=== PATIENT | male | born 1995 | race African-American/Black ===

== ENCOUNTER 2024-08-26 11:36 | Emergency (ER) | payer MEDICAID, SELFPAY ==
[2024-08-26 11:51] VITALS: BP 172/111; PULSE 106; RESP 20; TEMP 36.7; O2SAT 98; BMI 36.7
--- NOTE | 2024-08-26 12:07 | PD.EDDEPRS ---
ED Psych RME/HPI General Chief Complaint: Depression Stated Complaint: DEPRESSION /ANXIETY Time Seen by Provider: 08/26/24 11:39 Arrival date/time: 08/26/24 11:36 29-year-old male presents to the emergency department today stating that he has bipolar disorder and has been out of his Seroquel for her milligrams for the last couple of weeks patient requesting refill of his medication patient reports he recently moved here from [place] Limitations: no limitations Related Data Previous Rx's ?Medication ?Instructions ?Recorded quetiapine 200 mg tablet 400 mg (2 x 200 mg) PO QDAY 30 08/26/24 days #60 tabs Allergies Allergy/AdvReac Type Severity Reaction Status Date / Time No Known Allergies Allergy Verified 08/26/24 11:37 Review of Systems Review of Systems Systems Reviewed: All systems reviewed, normal except as documented Constitutional Constitutional: Reports system reviewed and no additional complaints, except as documented, Denies fever(s) and Denies headache(s) Eyes Eyes: Reports system reviewed and no additional complaints, except as documented and Denies blurry vision ENT Ears, Nose, Mouth, and Throat: Reports system reviewed and no additional complaints, except as documented, Denies headache(s), Denies nasal congestion and Denies nasal discharge Cardiovascular Cardiovascular: Reports system reviewed and no additional complaints, except as documented, Denies chest pain and Denies dyspnea Respiratory Respiratory: Reports system reviewed and no additional complaints, except as documented, Denies chest congestion, Denies cough and Denies dyspnea Gastrointestinal Gastrointestinal: Reports system reviewed and no additional complaints, except as documented and Denies abdominal pain Musculoskeletal Musculoskeletal: Reports system reviewed and no additional complaints, except as documented Integumentary/Breasts Skin/Breast: Reports system reviewed and no additional complaints, except as documented and Denies rash Neurologic Neurologic: Reports system reviewed and no additional complaints, except as documented, Reports as per HPI, Denies behavioral changes, Denies headache(s) and Denies memory loss Psychiatric Psychiatric: Reports system reviewed and no additional complaints, except as documented, Denies anhedonia, Reports anxiety, Denies behavioral changes, Reports depression, Denies difficulty concentrating, Denies hallucinations, Denies homicidal ideation, Denies memory loss, Denies panic attacks, Denies suicidal ideation, Denies tactile hallucinations and Denies visual hallucinations Past Medical History Social History SMOKING STATUS: Current every day smoker ED Exam General Limitations: Present no limitations General appearance: Present alert and in no apparent distress Head Head exam: Present atraumatic Eye Eye exam: Present normal appearance, PERRL and EOMI ENT ENT exam: Present normal exam, normal oropharynx and mucous membranes moist Neck Neck exam: Present normal inspection, full ROM and trachea midline Chest Chest inspection: Present normal inspection and symmetric chest wall rise Respiratory Respiratory exam: Present normal lung sounds bilaterally Cardiovascular Cardiovascular exam: Present regular rate, normal rhythm and normal heart sounds Abdominal Exam Abdominal exam: Present soft and normal bowel sounds Extremities Exam Extremities exam: Present normal inspection and full ROM Back Exam Back exam: Present normal inspection and full ROM Neurological Exam Neurological exam: Present alert, oriented X3 and CN II-XII intact Psychiatric Psychiatric exam: Present normal affect and normal mood Skin Skin exam: Present warm, dry, intact and normal color Course Quality Measures none Vital Signs Vital signs: Vital Signs Temperature 98.1 F 08/26/24 11:51 Pulse Rate 106 H 08/26/24 11:51 Respiratory Rate 20 08/26/24 11:51 Blood Pressure 172/111 H 08/26/24 11:51 Pulse Oximetry (%) 98 08/26/24 11:51 Oxygen Delivery Method Room Air 08/26/24 11:51 O2 saturation 98% room air within normal limits Psych MDM Narrative MDM Narrative:: 29-year-old male presents to the emergency department today stating that he has bipolar disorder and has been out of his Seroquel for her milligrams for the last couple of weeks patient requesting refill of his medication patient reports he recently moved here from [place] On exam patient well-appearing patient does not appear ill or toxic in no acute distress Patient given prescription for Seroquel Patient is here with fianc? patient reports no suicidal or homicidal ideations he assures me at this patient answers all questions appropriately Patient discharged home in no distress to follow-up with primary care doctor in the next 24 to 48 hours and for any worsening symptoms to return to the ER immediately Patient data External records reviewed:: [facility] previous records Clinical information provided by:: patient Social determinants that could affect healthcare access:: mental health Patient has the following chronic illnesses:: Bipolar disorder How is presenting disease/condition affected by chronic disease/condition?: caused by Evaluation data The following diagnostics were reviewed and interpreted by me:: other (specify) (N/A) Lab and/or radiology exams considered but not ordered:: N/A Interpretation Summary: N/A Medications / Prescriptions Medications or Prescriptions considered but not ordered:: Given Medication administrations:: Rx given Consultations Consultation(s) initiated? (list below): No Diagnosis Psych Differential Diagnosis: acute psychosis, chronic schizophrenia, suicidal ideation, bipolar disorder and other (bipolar disorder) Most likely diagnosis given after review of the tests above:: Back pain Admission Indicated Admission indicated?: not indicated Admission Request Was there a request for admission?: No Disposition Plan Disposition Plan: Discharge Discharge Attestation Discharge Attestation: The patient and all family members were given an opportunity to ask questions and understood the discharge instructions. Discharge instructions specifically effects, indications for sooner follow up or return to the emergency department, and the expected course of current diagnosis. Patient condition: Stable Discharge Plan Plan Patient Disposition: HOME (Self Care) Disposition Comment: Stable Prescriptions/Referrals Prescriptions/Med Rec: New quetiapine 200 mg tablet 400 mg PO QDAY 30 Days Qty: 60 0RF Problem List Clinical Impression: Bipolar disorder, Anxiety Patient/Caregiver Discharge Instructions Education Materials: ED Bipolar Disorder Additional Instructions: Please follow up with your primary care doctor in the next 24-48hrs for any worsening symptoms return here immediately Print Language: Austrian Stand Alone Forms: Kourtney Award Info., Patient Portal Info Letter COREY/MILKA Supervising Physician COREY/MILKA Supervising Physician: Dr. Yanez
== END 2024-08-26 12:08 | disposition home or self-care (01) ==
LOC: SERX 12:21
PROVIDERS: Emergency Provider Emergency Medicine
DX: F31.9 Bipolar disorder, unspecified (principal); F41.9 Anxiety disorder, unspecified; Z76.0 Encounter for issue of repeat prescription
CPT/HCPCS: 99281

== ENCOUNTER 2024-11-27 22:22 | Emergency (ER) | payer SELFPAY ==
[2024-11-27 22:24] VITALS: BP 154/93; PULSE 59; RESP 18; TEMP 36.4; O2SAT 99; BMI 33.2
[2024-11-27 22:44] VITALS: PULSE 108; RESP 22; O2SAT 99
--- NOTE | 2024-11-27 22:44 | EDRME_ITS ---
Rapid Medical Screening Exam [facility] Arrival date/time: 11/27/24 22:22 This is a 29-year-old male that is brought in by ambulance with complaints of left shoulder pain, left chest pain, right wrist pain and status post hitting his head and the police car a couple times. Patient denies any loss of consciousness. Patient complains of a headache. Patient admits to smoking meth today around 6 PM. Patient was in custody upon ambulance arrival but then was brought to the emergency room with no police at bedside. I have greeted and performed a focused initial assessment of this patient. Initial appropriate labs ordered at this time. A comprehensive ED assessment and evaluation of the patient and analysis of all test and completion of medical decision making process will be conducted by additional ED provider. Chief Complaint: Head Injury Time Seen by Provider: 11/27/24 22:28 Vital signs: Vital Signs Temperature 97.5 F 11/27/24 22:24 Pulse Rate 59 L 11/27/24 22:24 Respiratory Rate 18 11/27/24 22:24 Blood Pressure 154/93 H 11/27/24 22:24 Pulse Oximetry (%) 99 11/27/24 22:24 Oxygen Delivery Method Room Air 11/27/24 22:24
--- NOTE | 2024-11-27 22:47 | XR_ITS ---
Examination: PA lateral chest 2 views Technique: Upright PA lateral chest 2 views Exam date and time: November 27, 2024 10:50 PM Indications: Chest pain today. Findings: Normal heart size Lungs are clear. The osseous structures are intact Impression: No active disease
--- NOTE | 2024-11-27 22:47 | XR_ITS ---
Examination: CT brain head without contrast. 2-D sagittal coronal reconstructions Date and time of exam:November 28, 2024 0001 hrs. Indications: Injury to the head today, head pain CTDI: vol (mGy):55.3 DLP: (mGycm):1058 Technique: Multiple CT axial sections of the brain have been obtained, 5 mm slice thickness. Contrast has not been administered. 2-D sagittal, coronal reconstructions have been obtained Low dose protocols were performed. One or more of the following dose reduction techniques were used; automated exposure control, adjustment of the mA and/or KV according to patient size, use of iterative reconstruction technique. Findings: No significant ventricular enlargement. Intra-axial or extra-axial hemorrhage density is not seen. No mass effect or midline shift Basal cisterns are not remarkable. Fourth ventricle is midline. Cranial vault intact. Impression: Negative for acute hemorrhage, mass effect or midline shift
--- NOTE | 2024-11-27 22:48 | XR_ITS ---
Examination: Wrist, right 2 views Technique: Wrist AP, lateral 2 views Date and time of exam: December 07, 2024 10:50 PM Indications: Wrist pain today. Findings: No acute fracture No dislocation No foreign body Impression: No acute fracture
--- NOTE | 2024-11-27 23:35 | PC.NURSE ---
RAUL REFERENCE NUMBER [id number].
--- NOTE | 2024-11-28 01:27 | PRELIM_ITS ---
CT scan of the head without intravenous contrast (axial sections with sagittal and coronal reformats) November 28, 2024 0010 hours Clinical History: Head injury. No prior study is available for comparison. Findings: No evidence of intracranial hemorrhage, mass effect or midline shift. The ventricles and CSF spaces are unremarkable. The calvarium is intact. The mastoid air cells and the visualized paranasal sinuses are clear. Impression: No evidence of intracranial hemorrhage, midline shift or calvarial fracture. Report Electronically Signed By: Chema Escobar 11/28/2024 1:27:26 AM [EST]
[2024-11-28 05:37] VITALS: BP 161/63; PULSE 91; RESP 17; TEMP 36.8; O2SAT 97
[2024-11-28 07:30] LABS: Alcohol, Urine Negative (Negative); Amphetamine/Methamp Scrn,U Positive (Negative); Barbiturate Screen,Urine Negative (Negative); Benzodiazepines Screen,Urine Negative (Negative); Benzoylecgonine Screen, Ur Negative (Negative); Fentanyl Screen,Urine Negative (Negative); Opiate Screen,Urine Negative (Negative); THC Screen,Urine Positive (Negative)
[2024-11-28 08:20] LABS: Collection Type, Urine Clean Catch
[2024-11-28 08:24] LABS: Bilirubin,Urine Negative (Negative); Blood,Urine Negative (Negative); Clarity,Urine Clear (Clear/Hazy); Color,Urine Yellow (Lt Yel-Yel); Glucose, Urine Negative (Negative); Ketones,Urine Negative (Negative); Leukocyte Esterase,Urine Negative (Negative); Nitrite,Urine Negative (Negative); Protein,Urine 1+ (Neg - Trace); RBC,Urine 3 /hpf (0-3); Specific Gravity,Urine 1.046 (1.001-1.035); Squamous Epithelial Cell,Urine < 1 /hpf (0-5); WBC,Urine 2 /hpf (0-5)
[2024-11-28 08:44] VITALS: BP 144/91; PULSE 95; RESP 19; TEMP 36.7; O2SAT 95
[2024-11-28 09:24] LABS: Basophils % (Auto) 1 % (0-2.5); Eosinophils # (Auto) 0.1 Thou/mm3 (0.0-0.5); Eosinophils % (Auto) 1 % (0-10); Hematocrit 46.7 % (41.0-53.0); Hemoglobin 15.2 g/dL (13.5-16.0); Immature Granulocytes % (Auto) 0 % (0-0); Immature Granulocytes Auto 0.01 Thou/mm3 (0.00-0.00); Lymphocytes # (Auto) 2.2 Thou/mm3 (1.0-4.8); Lymphocytes % (Auto) 37 % (10-50); Mean Corpuscular HGB Conc 32.5 g/dl (31.0-37.0); Mean Corpuscular Hemoglobin 26.1 pg (25.0-35.0); Mean Corpuscular Volume 80 fL (80-100); Monocytes # (Auto) 0.8 Thou/mm3 (0.0-0.8); Monocytes % (Auto) 14 % (0-12); Neutrophils # (Auto) 2.8 Thou/mm3 (1.8-7.7); Neutrophils % (Auto) 47 % (37-80); Nucleated Red Blood Cell % 0 /100 WBC (0); Platelet Count 189 Thou/mm3 (140-440); Red Blood Count 5.82 Miln/mm3 (4.50-5.90)
[2024-11-28 09:50] LABS: Alanine Aminotransferase 61 U/L (10-49); Albumin, Serum 4.4 gm/dL (3.5-5.0); Albumin/Globulin Ratio 1.5 (1.2-2.2); Alkaline Phosphatase 126 U/L (46-116); Anion Gap 5 (7-16); Aspartate Amino Transferase 98 U/L (0-34); BUN/Creatinine Ratio 14 Ratio (12-20); Bilirubin,Total 0.7 mg/dL (0.3-1.2); Blood Urea Nitrogen 15 mg/dL (9-23); Calcium 9.7 mg/dL (8.3-10.6); Calcium (Corrected) 9.7 mg/dL (8.5-10.1); Carbon Dioxide 29.7 mMol/L (20.0-31.0); Chloride 106 mMol/L (98-107); Creatinine (Component) 1.1 mg/dL (0.6-1.3); Estimated Creatinine Clearance 117.7 mL/min (>60); Glucose 104 mg/dL (74-106); Osmolality,Calculated 282 (275-295); Potassium 4.4 mMol/L (3.4-5.1); Sodium 141 mMol/L (136-145); Total Protein 7.4 gm/dL (5.7-8.2); eGFR > 60 See Note
--- NOTE | 2024-11-28 11:45 | PD.EDSUICD ---
ED Psych RME/HPI General Chief Complaint: Suicidal Stated Complaint: POSSIBLE HEAD INJURY Time Seen by Provider: 11/27/24 22:28 Arrival date/time: 11/27/24 22:22 RME / HPI RME / HPI Narrative: 11/27/24 22:22 This is a 29-year-old male that is brought in by ambulance with complaints of left shoulder pain, left chest pain, right wrist pain and status post hitting his head and the police car a couple times. Patient denies any loss of consciousness. Patient complains of a headache. Patient admits to smoking meth today around 6 PM. Patient was in custody upon ambulance arrival but then was brought to the emergency room with no police at bedside. I have greeted and performed a focused initial assessment of this patient. Initial appropriate labs ordered at this time. A comprehensive ED assessment and evaluation of the patient and analysis of all test and completion of medical decision making process will be conducted by additional ED provider. Related Data Allergies Allergy/AdvReac Type Severity Reaction Status Date / Time No Known Allergies Allergy Verified 09/02/24 08:42 Review of Systems Review of Systems Narrative Review of Systems: Review of Systems: Constitutional: DENIES: Fevers,; Eyes: DENIES: Loss of vision, Head/Ear/Nose: DENIES: Loss of hearing. Throat: Denies dysphagia. Cardiovascular: Denies chest pain, Dyspnea or syncope. Respiratory: DENIES: Shortness of breath, Gastrointestinal: DENIES: Rectal bleeding or melena. Genitourinary: DENIES: Dysuria (painful or difficult urination),; Musculoskeletal: DENIES: Arthralgia (pain in a joint),; Skin: DENIES: Rash,; Neurological: DENIES: loss of function or movement,; Psychiatric: See HPI Endocrinology: DENIES: Weight change,; Hematologic/Lymphatic: DENIES: Abnormal bruising. Allergic/Immunologic: DENIES: Urticaria (hives), ED Exam Narrative Physical exam: Physical Exam: General: The vital signs were reviewed. Patient is laying on the bench seat in the conference room with a sheet over his head trying to sleep he wakes up immediately follows commands he has no obvious hallucinations. There is no obvious suicidal thoughts communicated. The patient is non-toxic, in no apparent distress and appears healthy with a patent airway, no respiratory distress and has no apparent circulatory problems. Head & Scalp: Normocephalic, atraumatic. Face: Appears normal and is without lesions, deformity. Ears: Left external pinna appears normal. Right external pinna appears normal. Eyes: The sclera is anicteric. No obvious photophobia. The Left and Right Orbit/Lid/Conjunctiva appears normal without swelling, discoloration or injection. Nose: The nose is without deformity, discharge or tenderness; Throat: Appears normal. The mucous membranes are pink and moist without exudates, redness or mass seen. The tongue appears normal. Neck: The neck is supple and no apparent mass or adenopathy. Chest: The chest wall is normal in size and symmetry and has no chest wall tenderness or crepitus. The patient displays normal ventilator effort without retractions, accessory muscle use and has adequate air movement bilaterally with no wheezes and no rales. Cardiovascular: Regular rate and rhythm; No murmurs, rubs, or gallops; Gastrointestinal: The abdomen appears normal. No obvious hernias or mass. The abdomen is soft and benign, non-distended, with no pain, no guarding and no rebound tenderness. Bowel sounds are present and normal sounding. No CVA tenderness. Genitourinary: Back/Spine: Normal Spektor and Extremities/Musculoskeletal/lymphatic: The bilateral upper and lower extremities are warm. There is no evidence of arterial insufficiency. There is no evidence of venous insufficiency/edema. The patient spontaneously moves bilateral upper and lower extremities with no pain and no limitation of movement. There is no apparent, injury or trauma. Skin: The skin is warm, dry and intact. No rashes. No petechia. No purpura. No abnormal bruising. The color is appropriate with no cyanosis. Mental status/Psychiatric: Mental status seems to be appropriate for age. States he is cutting on himself and points to his arm but there is no cut griffin visible. The patient has no apparent delusions, visual hallucinations, no apparent audible hallucinations. The patient has no apparent suicidal thoughts/ideation and no apparent homicidal thoughts/ideation. Neurological: The patient is awake, alert, interactive, cordial, cooperative and is oriented to name and situation. The patient follows commands and answers historical question with no impairment. There is no visual disturbance apparent. The pupils are equal and reactive bilaterally with normal eye movements and no diplopia The bilateral upper and lower extremities have normal strength, normal range of motion and normal functioning. The gait, station and balance appear to be baseline with no acute change Course Quality Measures none Orders Category Date Time Status EKG (ED ONLY) *Do not use* NOW Care 11/27/24 22:48 Completed Diet Regular Diet 11/28/[address] head/brain wo con Stat Exams 11/27/24 22:47 Completed EKG (ED Only) Stat Exams 11/27/24 22:47 Ordered XR chest 2V Stat Exams 11/27/24 22:47 Completed XR wrist RT 2V Stat Exams 11/27/24 22:48 Completed Alcohol, Urine Stat Lab 11/28/24 05:21 Completed CBC Stat Lab 11/28/24 08:45 Completed Comprehensive Metabolic Panel Stat Lab 11/28/24 08:45 Completed Drug Screen,Urine Stat Lab 11/28/24 05:21 Completed Urinalysis Stat Lab 11/28/24 05:21 Completed Vital Signs Vital signs: Vital Signs Temperature 97.5 F 11/27/24 22:24 Pulse Rate 59 L 11/27/24 22:24 Respiratory Rate 18 11/27/24 22:24 Blood Pressure 154/93 H 11/27/24 22:24 Pulse Oximetry (%) 99 11/27/24 22:24 Oxygen Delivery Method Room Air 11/27/24 22:24 Psych MDM Narrative MDM Narrative:: Evidently patient initially presented with complaints of head pain after bouncing his head against the wall or something and then chest and x-rays of the wrist were done and those also came back negative. Patient was about to be discharged evidently and then started talk about suicidal thoughts and therefore he was put into room for further evaluation. Patient was medically cleared he is using methamphetamine and admits to using it 2 days ago. Is also using marijuana and his drug screen. Medical workup reveals a x-ray of the wrist which reveals no fracture. CT of the head was unremarkable. X-ray of the chest reveals no infiltrates effusion and normal heart silhouette. CBC was done which was unremarkable and a comprehensive metabolic panel was essentially negative with some mild transaminase elevations. Social service evaluate this patient this morning at about 1145 they are communicating to the patient is cleared to be discharged. He was advised to follow-up with mental health and not use drugs. Patient data External records reviewed:: [facility] previous records Clinical information provided by:: patient Social determinants that could affect healthcare access:: mental health Patient has the following chronic illnesses:: Schizophrenia How is presenting disease/condition affected by chronic disease/condition?: exacerbated by Evaluation data The following diagnostics were reviewed and interpreted by me:: other (specify) (Lab results are discussed in the MDM above.) Lab and/or radiology exams considered but not ordered:: None Interpretation Summary: See MDM Medications / Prescriptions Medications or Prescriptions considered but not ordered:: None Medication administrations:: None Consultations Consultation(s) initiated? 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 Discharge instructions specifically effects, indications for sooner follow up or return to the emergency department, and the expected course of current diagnosis. Patient condition: Stable Discharge Plan Plan Patient Disposition: HOME (Self Care) Prescriptions/Referrals Referrals: No Primary/Family,Physician [Primary Care Provider] - In 1 week Problem List Clinical Impression: Suicidal ideation Patient/Caregiver Discharge Instructions Education Materials: Depression and Suicide Additional Instructions: Please stop using methamphetamine. Follow-up with mental health as directed. Return if you are getting worse. Print Language: Maori
--- NOTE | 2024-11-28 11:50 | PC.NURSE ---
cleared by foster care social worker for discharge
--- NOTE | 2024-11-28 12:24 | PC.SS ---
Addendum entered by Yasmine Schafer 11/28/24 12:44: Patient requested [employer] transport support. Transportation arranged for 12:30 via [employer]. Original Note: Patient BIB ambulance due to chest pain and disclosed experiencing suicidal ideation to tending RN. Activities Coordinator met with patient at conference room. Patient was attempting to put shoes on and leave. Patient was cooperative and was redirected to continue evaluation. Patient was AOx3, scored Low Risk in CSSRS. Patient confirmed demographic information and shared he is transient. Patient denied having current SI, plan, method, or intent. Patient explained he reported wanting to hang self to RN due to wanting a place to sleep. Patient stated, I know what to say to get a bed to sleep and eat. Patient denied having self-harmed. Patient reported having relapsed due to stress and arguing with his girlfriend. Patient reported having Ah and Vh after ingesting methamphetamine. Patient denied having access to firearms. Patient declined [facility] support, he explained he is already linked to [facility] and in the process of seeking his own mental health services. Patient reported being diagnosed with depression and anxiety. He stated he is currently not taking psychotropic medications at this time. Patient identified his girlfriend Alma Delia Mejia as part of his support system. Crisis and emergency contacts reviewed with patient. Activities Coordinator consulted with vendor quality supervisor [facility] and patient was assessed as not meeting criteria for an involuntary hold. Patient scored low risk on CSSRS. Safety plan completed with patient. Community resources provided to patient. Transportation token provided to patient. Dr. Herman and ZAIRA Jimenez informed.
== END 2024-11-28 11:55 | disposition home or self-care (01) ==
PROVIDERS: Emergency Medicine; Emergency Provider Emergency Medicine
DX: R45.851 Suicidal ideations (principal); R51.9 Headache, unspecified; M25.531 Pain in right wrist; R07.9 Chest pain, unspecified
CPT/HCPCS: 36415; 70450; 71046; 73100; 80053; 80307; 80320; 81001; 85025; 90839; 93005; 96127; 99284; G0480

== ENCOUNTER 2025-01-12 05:25 | Emergency (ER) | payer MEDICAID, SELFPAY ==
[2025-01-12] VITALS (7 sets, daily range): BP systolic 129–167; BP diastolic 65–104; PULSE 60–96; RESP 16–20; TEMP 36.5–36.8; O2SAT 96–98; BMI 34.7
--- NOTE | 2025-01-12 06:17 | PD.EDRME ---
Rapid Medical Screening Exam RME Arrival date/time: 01/12/25 05:25 29-year-old male with a history of depression and high blood pressure presents to the emergency room with a chief complaint of suicidal ideation. Patient states he has been depressed for the last 2 months and this plan is to slice his wrist. I have greeted and performed a focused initial assessment of this patient. A comprehensive ED assessment and evaluation of the patient, analysis of all test results, and completion of the medical decision making process will be conducted by additional ED providers. Chief Complaint: Suicidal Time Seen by Provider: 01/12/25 06:12 Vital signs: Vital Signs Temperature 98.1 F 01/12/25 05:37 Pulse Rate 90 01/12/25 05:37 Respiratory Rate 17 01/12/25 05:37 Blood Pressure 167/104 H 01/12/25 05:37 Pulse Oximetry (%) 98 01/12/25 05:37 Oxygen Delivery Method Room Air 01/12/25 05:37 Vital signs reviewed by provider: Yes
[2025-01-12 07:04] LABS: Amphetamine/Methamp Scrn,U Negative (Negative); Barbiturate Screen,Urine Negative (Negative); Benzodiazepines Screen,Urine Negative (Negative); Benzoylecgonine Screen, Ur Negative (Negative); Fentanyl Screen,Urine Negative (Negative); Opiate Screen,Urine Negative (Negative); THC Screen,Urine Positive (Negative)
--- NOTE | 2025-01-12 07:08 | PD.EDSUICD ---
ED Psych RME/HPI General Chief Complaint: Suicidal Stated Complaint: DEPRESSION AND SI Time Seen by Provider: 01/12/25 06:12 Arrival date/time: 01/12/25 05:25 RME / HPI RME / HPI Narrative: 01/12/25 05:25 29-year-old male with a history of depression and high blood pressure presents to the emergency room with a chief complaint of suicidal ideation. Patient states he has been depressed for the last 2 months and this plan is to slice his wrist. I have greeted and performed a focused initial assessment of this patient. A comprehensive ED assessment and evaluation of the patient, analysis of all test results, and completion of the medical decision making process will be conducted by additional ED providers. DR. GARRETT MAIN ED EVALUATION: 29 year old male who is currently homeless with history of schizoaffective disorder and previous mental health hospitalization presents to the ED requesting mental health evaluation. Patient reports feeling suicidal, delusional, and not worthy of living. States he plans to cut himself. Additionally reports outbursts where he is punching himself on the head or punching mascorro/floors, and feels that people are out to hurt him. Patient mentioned in the past he has taken Seroquel however due to its side effects he stopped he medication. States he has attempted to be evaluated by PCP at [facility] for different medications but was told he would need to wait 45 days. Related Data Allergies Allergy/AdvReac Type Severity Reaction Status Date / Time No Known Allergies Allergy Verified 01/12/25 05:25 Review of Systems Review of Systems Narrative Review of Systems: Constitutional: DENIES; Fevers Eyes: DENIES; Loss of vision Head/Ear/Nose: DENIES; Loss of hearing Throat: DENIES; Dysphagia Cardiovascular: DENIES; Chest pain, dyspnea or syncope Respiratory: DENIES; Shortness of breath Gastrointestinal: DENIES; Rectal bleeding or melena. Genitourinary: DENIES; Dysuria (painful or difficult urination) Musculoskeletal: DENIES; Arthralgia (pain in a joint),; Skin: DENIES; Rash Neurological: DENIES; Loss of function or movement Psychiatric: SEE HPI Endocrinology: DENIES; Weight change Hematologic/Lymphatic: DENIES; Abnormal bruising Allergic/Immunologic: DENIES; Urticaria (hives) Past Medical History Past Medical History CARDIAC: Positive Hypertension; Negative Congestive Heart Failure RESPIRATORY: Negative Chronic Obstructive Pulmonary Disease (COPD) GENITOURINARY: Negative Renal Disease ENDOCRINE: Negative Diabetes Mellitus Type 1 or Diabetes Mellitus Type 2 PSYCHO/SOCIAL: Positive Depression and Anxiety Family History FAMILY HISTORY: Positive Family Cancer (PT'S GRANDMA STOMACH CANCER) Social History SMOKING STATUS: Current every day smoker ED Exam Narrative Physical exam: Physical Exam: General: The vital signs were reviewed. The patient is non-toxic, in no apparent distress and appears healthy with a patent airway, no respiratory distress and has no apparent circulatory problems. Head & Scalp: Normocephalic, atraumatic. Face: Appears normal and is without lesions, deformity. Ears: Left external pinna appears normal. Right external pinna appears normal. Eyes: The sclera is anicteric. No obvious photophobia. The Left and Right Orbit/Lid/Conjunctiva appears normal without swelling, discoloration or injection. Nose: The nose is without deformity, discharge or tenderness; Throat: Appears normal. The mucous membranes are pink and moist without exudates, redness or mass seen. The tongue appears normal. Neck: The neck is supple and no apparent mass or adenopathy. Chest: The chest wall is normal in size and symmetry and has no chest wall tenderness or crepitus. The patient displays normal ventilator effort without retractions, accessory muscle use and has adequate air movement bilaterally with no wheezes and no rales. Cardiovascular: Regular rate and rhythm; No murmurs, rubs, or gallops; Gastrointestinal: The abdomen appears normal. No obvious hernias or mass. The abdomen is soft and benign, non-distended, with no pain, no guarding and no rebound tenderness. Bowel sounds are present and normal sounding. No CVA tenderness. Genitourinary: Back/Spine: Normal inspection Extremities/Musculoskeletal/lymphatic: The bilateral upper and lower extremities are warm. There is no evidence of arterial insufficiency. There is no evidence of venous insufficiency/edema. The patient spontaneously moves bilateral upper and lower extremities with no pain and no limitation of movement. There is no apparent, injury or trauma. Skin: The skin is warm, dry and intact. No rashes. No petechia. No purpura. No abnormal bruising. The color is appropriate with no cyanosis. Mental status/Psychiatric: Mental status is somewhat labile and angry The patient has no rambling speech at times. The patient has no apparent suicidal thoughts/ideation and no apparent homicidal thoughts/ideation. Neurological: The patient is awake, alert, interactive, cordial, cooperative and is oriented to name and situation. The patient follows commands and answers historical question with no impairment. There is no visual disturbance apparent. The pupils are equal and reactive bilaterally with normal eye movements and no diplopia The bilateral upper and lower extremities have normal strength, normal range of motion and normal functioning. The gait, station and balance appear to be baseline with no acute change Course Quality Measures none Orders Category Date Time Status 1799 Psychiatric Hold NOW Care 01/12/25 08:00 Ordered Alcohol, Blood Medical Stat Lab 01/12/25 07:47 Completed CBC Stat Lab 01/12/25 07:47 Completed CMP [Comprehensive Metabolic Panel] Stat Lab 01/12/25 07:47 Completed Drug Screen,Urine Stat Lab 01/12/25 06:30 Completed DiphenhydrAMINE INJ [Benadryl Inj] Med 01/12/25 09:05 Discontinued 50 mg IM X1 ONE Haloperidol Lactate [Haldol Inj] Med 01/12/25 09:05 Discontinued 10 mg IM X1 ONE LORazepam [Ativan Inj] Med 01/12/25 09:05 Discontinued 2 mg IM X1 ONE Vital Signs Vital signs: Vital Signs Temperature 98.1 F 01/12/25 05:37 Pulse Rate 90 01/12/25 05:37 Respiratory Rate 17 01/12/25 05:37 Blood Pressure 167/104 H 01/12/25 05:37 Pulse Oximetry (%) 98 01/12/25 05:37 Oxygen Delivery Method Room Air 01/12/25 05:37 Pulse ox is 98% on room air which is adequate. Psych MDM Narrative MDM Narrative:: IJacinta, am scribing for and in the presence of Dr. Garrett. Patient is medically cleared for mental health evaluation. CBC was within normal limits. Sodium 133 potassium 3 9 chloride 102 CO2 25 BUN 13 creatinine 1.1 urine drug screen was positive for marijuana otherwise negative 0902: The patient is agitated, screaming, and pounding his fists on the bed. I called our ASW over to assess the patient and recommends medicating then reassessing. Patient was medically cleared with drug screen positive for marijuana only. CBC and CHEM panel essentially unremarkable. Because he got agitated as mentioned above he got some Haldol Ativan and Benadryl and. He has been sleeping comfortably with no further outbursts up to [address] services has seen the patient before and briefly and at this time are monitoring and observing for the longer. Patient's care will go to the oncoming doctor at 1800 hrs. 1630: Patient has been accepted by Dr. Parekh at [facility]. Patient has been calm since he got his sedation. Patient data External records reviewed:: [facility] previous records (I reviewed ED visit on 11/28/2024 ) Clinical information provided by:: patient Social determinants that could affect healthcare access:: mental health Patient has the following chronic illnesses:: Schizoaffective disorder How is presenting disease/condition affected by chronic disease/condition?: exacerbated by Evaluation data The following diagnostics were reviewed and interpreted by me:: lab results Lab and/or radiology exams considered but not ordered:: None Interpretation Summary: as noted above Medications / Prescriptions Medications or Prescriptions considered but not ordered:: None Medication administrations:: Medication Administration History Discontinued Medications Diphenhydramine HCl (Diphenhydramine Inj 50 Mg/Ml Vial) 50 mg IM X1 ONE Stop: 01/12/25 09:06 Last Admin: 01/12/25 09:29 Dose: 50 mg Documented By: MAYLIN Haloperidol Lactate (Haloperidol Lact Inj 5 Mg/Ml Vial) 10 mg IM X1 ONE Stop: 01/12/25 09:06 Last Admin: 01/12/25 09:28 Dose: 10 mg Documented By: MAYLIN Lorazepam (Lorazepam 2 Mg/Ml Vial) 2 mg IM X1 ONE Stop: 01/12/25 09:06 Last Admin: 01/12/25 09:29 Dose: 2 mg Documented By: MAYLIN See above Consultations Consultation(s) initiated? (list below): No Diagnosis Psych Differential Diagnosis: acute psychosis, chronic schizophrenia, suicidal ideation, bipolar disorder, depression, drug-induced psychotic disorder and acute anxiety Most likely diagnosis given after review of the tests above:: Hx of schizoaffective disorder Outbursts of anger Admission Indicated Admission indicated?: not indicated Explain why admission is indicated or not indicated:: Txfer to [facility] Admission Request Was there a request for admission?: No Disposition Plan Disposition Plan: Discharge Discharge Attestation Discharge Attestation: The patient and all family members were given an opportunity to ask questions and understood the discharge instructions. Discharge instructions specifically effects, indications for sooner follow up or return to the emergency department, and the expected course of current diagnosis. Patient condition: Stable Discharge Plan Prescriptions/Referrals Referrals: No Primary/Family,Physician [Primary Care Provider] - In 1 week Problem List Clinical Impression: History of schizoaffective disorder, Outbursts of anger Patient/Caregiver Discharge Instructions Print Language: Guamanian
[2025-01-12 08:03] LABS: Basophils % (Auto) 1 % (0-2.5); Eosinophils % (Auto) 1 % (0-10); Hematocrit 52.2 % (41.0-53.0); Immature Granulocytes % (Auto) 0 % (0-0); Lymphocytes # (Auto) 2.5 Thou/mm3 (1.0-4.8); Lymphocytes % (Auto) 42 % (10-50); Mean Corpuscular HGB Conc 32.6 g/dl (31.0-37.0); Mean Corpuscular Hemoglobin 26.1 pg (25.0-35.0); Mean Corpuscular Volume 80 fL (80-100); Monocytes # (Auto) 0.6 Thou/mm3 (0.0-0.8); Monocytes % (Auto) 11 % (0-12); Neutrophils # (Auto) 2.8 Thou/mm3 (1.8-7.7); Neutrophils % (Auto) 46 % (37-80); Nucleated Red Blood Cell % 0 /100 WBC (0); Platelet Count 172 Thou/mm3 (140-440); Red Blood Count 6.52 Miln/mm3 (4.50-5.90)
[2025-01-12 08:34] LABS: Alanine Aminotransferase 19 U/L (10-49); Albumin, Serum 4.9 gm/dL (3.5-5.0); Albumin/Globulin Ratio 1.4 (1.2-2.2); Alcohol, Blood Medical < 3.0 mg/dL (0-10.0); Alkaline Phosphatase 130 U/L (46-116); Anion Gap 6 (7-16); Aspartate Amino Transferase 31 U/L (0-34); BUN/Creatinine Ratio 12 Ratio (12-20); Bilirubin,Total 1.2 mg/dL (0.3-1.2); Blood Urea Nitrogen 13 mg/dL (9-23); Calcium 9.9 mg/dL (8.3-10.6); Calcium (Corrected) 9.9 mg/dL (8.5-10.1); Carbon Dioxide 25.4 mMol/L (20.0-31.0); Chloride 102 mMol/L (98-107); Creatinine (Component) 1.1 mg/dL (0.6-1.3); Estimated Creatinine Clearance 120.3 mL/min (>60); Globulin 3.4 gm/dL (2.3-3.5); Glucose 91 mg/dL (74-106); Osmolality,Calculated 266 (275-295); Potassium 3.9 mMol/L (3.4-5.1); Sodium 133 mMol/L (136-145); Total Protein 8.3 gm/dL (5.7-8.2); eGFR > 60 See Note
--- NOTE | 2025-01-12 09:07 | PC.NURSE ---
Patient jumping up and down, yelling out, agitated, demanding medication, Security and Dr. Herman called to bedside.
[2025-01-12] MEDS: HALOPERIDOL LACT INJ 5 MG/ML VIAL 10 MG IM (09:28)
[2025-01-12] MEDS: DiphenhydrAMINE INJ 50 MG/ML VIAL IM (09:29)
[2025-01-12] MEDS: LORazepam 2 MG/ML VIAL IM (09:29)
--- NOTE | 2025-01-12 10:35 | PC.CC ---
ASW made face to face contact with the patient, introduced self, role, and reason for visit. Patient appeared to be alert and oriented to self, location, and situation. Patient reports he needs help as he has a mental health diagnosis of Schizo-affective with Bipolar Type. Patient reports he moved here but did not provide where he had relocated from. Patient reports he has been off his medication for approximately 5 months and needs help. Patient was agitated and ASW excused herself from the room. ASW will continue evaluation once patient is not agitated and safe for ASW to return for assessment.
--- NOTE | 2025-01-12 14:59 | PC.CC ---
Patient is a 29 year-old male who presents to the hospital for a mental health evaluation for depression and suicidal ideation. Patient was placed on a 1799 at 0800 on 01/12/2025. Al met with patient [id number] to complete assessment. ASW introduced self, role, and reason for assessment. ASW disclosed limits of confidentiality as well. Patient appeared alert and oriented to self, place, and situation. Patient?s mood appeared to be depressed had a flat affect and disinhibited and made minimal eye contact; patient had good insight and judgement. Patient?s thought process was linear and organized. No signs of delusions, paranoid or V/h. Patient reports he came to the hospital because he is having suicidal ideations with plan and intention to run into moving traffic. ASW explored if something occurred that triggered him to have suicidal ideations. Patient stated, ?I have been off my medication for a few months and have Schizo-affective Disorder Bipolar Type. ASW inquired who provided him with this diagnosis. Patient reports a Doctor in [place] provided him with this diagnosis. At the time of encounter patient continues to express suicidal ideations with plan to run into traffic. Patient denied homicidal ideations, visual and auditory hallucinations. Per patient, he has been on a 5150-hold in the past but was not able to provide details. Patient reports he had a suicide attempt a ?few years ago.? Patient did not elaborate what the attempt was. Patient scored High-Risk on the [place] Screening. Patient?s toxicology was positive for marijuana. ASW made contact with [facility] and patient is not connected to them. Patient reports there is no one to call for collateral information. Upon clinical consultation with QUITA, Amina Fermin patient will be placed on a 5150-hold for Danger to Self. Patient is unable to provide a viable safety plan. ASW provided advisement to patient of 5150-hold. ASW provided update of discharge plan to [facility] Facility to Dr. Herman, caustic purification operator Kathy, bedside ZAIRA Arias. ??
--- NOTE | 2025-01-12 16:02 | PC.CC ---
Patient was by accepted by [facility] by Dr. Parekh, unit 3. Gill provided accepting information with [facility]. ASW provided updated d/c plan to [facility] to Dr. Herman, picture frames inspector Anjali, and bedside RN. ASW provided accepting information to patient. ASW to arrange transportation via [facility].
== END 2025-01-12 18:00 ==
PROVIDERS: Nurse Practitioner Family; Emergency Provider Emergency Medicine
DX: F25.9 Schizoaffective disorder, unspecified (principal); R45.851 Suicidal ideations; F32.A Depression, unspecified; Z59.00 Homelessness unspecified
CPT/HCPCS: 36415; 80053; 80307; 80320; 85025; 90839; 96127; 96372; 99285; J1200; J1630; J2060; G0480

== ENCOUNTER 2025-09-14 18:52 | Emergency (ER) | payer MEDICAID, SELFPAY ==
[2025-09-14 19:09] VITALS: BP 144/58; PULSE 99; RESP 18; TEMP 36.7; O2SAT 98; BMI 33.2
--- NOTE | 2025-09-14 19:23 | PD.EDPSYCH ---
ED Psych RME/HPI General Chief Complaint: Psychiatric Symptoms Stated Complaint: MENTAL EVAL Time Seen by Provider: 09/14/25 19:03 Arrival date/time: 09/14/25 18:52 RME / HPI Treatments prior to arrival: placed on mental health hold RME / HPI Narrative: DR. QUINTEROS MAIN ED EVALUATION: Patient transported by EMS reportedly SI with associated plan and noted auditory hallucinations of command type. Patient has been off medication for approximately 5 days. No visual hallucinations or reported excessive alcohol consumption. No recent illicit drug abuse. Reports Hx of schizoaffective disorder. PMH: Schizoaffective Disorder, HIV, HTN PSH: Unremarkable Allergies: None Social: Tobacco/Marijuana use, Occasional alcohol, No recent methamphetamine Related Data Allergies Allergy/AdvReac Type Severity Reaction Status Date / Time No Known Allergies Allergy Verified 01/12/25 05:25 Review of Systems Review of Systems Systems Reviewed: All systems reviewed, normal except as documented Past Medical History Past Medical History CARDIAC: Positive Hypertension PSYCHO/SOCIAL: Positive Psychiatric Problems (Schizoeffective Disorder), Recreational Drug Use, Depression and Anxiety Family History FAMILY HISTORY: Positive Family Cancer (PT'S GRANDMA STOMACH CANCER) Social History SMOKING STATUS: Current some day smoker SUBSTANCE USE: methamphetamine ALCOHOL: Current ED Exam Narrative Physical exam: GEN. APPEARANCE: The patient is alert awake oriented X-3 demonstrated volatile emotional outbreak. Patient has good eye contact. VITALS: All vitals were reviewed and the pulse ox is 98%, which is normal according to my interpretation HEENT: Normocephalic, atraumatic and nontender. Pupils are equal and reactive. Oral mucosa is moist. NECK: Supple, nontender, no meningismus, no JVD. There is no thyromegaly and no lymphadenopathy. CHEST: Nontender on palpation no deformity and no crepitus. CARDIOVASCULAR: Heart regular rhythm, no murmur or gallop rub or extra beats. LUNGS: Clear to auscultation bilaterally with symmetrical chest rise. No laboring tachypnea or wheezing. No intercostal subcostal retraction. No rales and no rhonchi. ABDOMEN: Soft, flat, nontender to palpation, no guarding or rebound tenderness. There are no abnormal masses palpated. No pulsatile masses or bruits. Active and normal bowel sounds. EXTREMITIES: Normal inspection and palpation. No edema. No cyanosis. Patient is able to move all 4 extremities well SKIN: Warm and dry, no rashes noted. MUSCULOSKELETAL: No lumbar or midline bony tenderness. There is no CVA tenderness. No paraspinal muscle spasm or tenderness. NEURO: Cranial nerves II through XII grossly intact. There are no focal neurologic deficits noted. GCS is 15 PSYCHIATRIC: Affect is flat, speech slightly tangential, positive SI with plan, negative HI, positive delusions/auditory hallucinations. Course Course Course Narrative: 0600: Care assumed by Dr. Yanez (emergency physician). Past medical, surgical, social and family history reviewed. Vitals and home medications reviewed. Results and treatment plan discussed. They will assume the care of the patient at this time and will follow the patient, pending psychiatric evaluation and final disposition. Quality Measures none Orders Category Date Time Status 1799 Psychiatric Hold NOW Care 09/14/25 22:15 Ordered One-to-one observation NOW Care 09/14/25 19:17 Completed Suicide precautions NOW Care 09/14/25 19:16 Completed Diet Regular Diet 09/15/25 Lunch Active Acetaminophen Stat Lab 09/14/25 19:38 Completed Alcohol, Blood Medical Stat Lab 09/14/25 19:38 Completed Alcohol, Urine Stat Lab 09/14/25 20:58 Completed CBC Stat Lab 09/14/25 19:38 Completed Drug Screen,Urine Stat Lab 09/14/25 20:58 Completed Salicylate Stat Lab 09/14/25 19:38 Completed Diazepam Inj [Valium Inj] Med 09/14/25 19:03 Discontinued 5 mg IM X1 ONE Haloperidol Lactate [Haldol Inj] Med 09/14/25 19:03 Discontinued 10 mg IM X1 ONE QUEtiapine FUMARATE [SEROquel] Med 09/14/25 19:23 Discontinued 300 mg PO X1 ONE Late Tray Request Routine Oth 09/15/25 07:54 Active Vital Signs Vital signs: Vital Signs Temperature 98.1 F 09/14/25 19:09 Pulse Rate 99 09/14/25 19:09 Respiratory Rate 18 09/14/25 19:09 Blood Pressure 144/58 H 09/14/25 19:09 Pulse Oximetry (%) 98 09/14/25 19:09 Oxygen Delivery Method Room Air 09/14/25 19:09 Psych MDM Narrative MDM Narrative:: Scribe Attestation: IWendi, am scribing for and in the presence of Dr. Quinteros. Provider Notation: Although this document has been carefully reviewed, there may still be some phonetic and other typographical errors. These errors are purely grammatical due to imperfections in the software program and should not be construed in any way to compromise the substance of the patient's medical care during this visit. Patient transported by EMS reportedly SI with associated plan and noted auditory hallucinations of command type. Patient has been off medication for approximately 5 days. No visual hallucinations or reported excessive alcohol consumption. No recent illicit drug abuse. Please see PE findings. Laboratory marked included CBC serum chemistries were essentially unremarkable. Toxicological profile was positive for methamphetamine and marijuana. Patient initially severely agitated and verbal de-escalation accomplished by security officers. Patient underwent psychiatric screening laboratory analysis (please see above). Considered medically cleared and awaiting psychiatric evaluation in the AM. Patient's usual dosage of Seroquel administered as a mood stabilizer and Valium given for generalized anxiety. Currently awaiting mental health service evaluation. Patient data External records reviewed:: [facility] previous records (Reviewed prior ED records from 01/12/25. Patient was seen for History of schizoaffective disorder.) Clinical information provided by:: patient Social determinants that could affect healthcare access:: mental health (alcohol, methamphetamine) Patient has the following chronic illnesses:: Schizoeffective Disorder, Recreational Drug Use, Depression and Anxiety How is presenting disease/condition affected by chronic disease/condition?: exacerbated by Evaluation data The following diagnostics were reviewed and interpreted by me:: lab results Lab and/or radiology exams considered but not ordered:: None Interpretation Summary: See MDM above Medications / Prescriptions Medications or Prescriptions considered but not ordered:: None Medication administrations:: Medication Administration History Discontinued Medications Diazepam (Diazepam Inj 5 Mg/Ml Vial 2 Ml) 5 mg IM X1 ONE Stop: 09/14/25 19:04 Last Admin: 09/14/25 21:14 Dose: 5 mg Documented By: KARINA Haloperidol Lactate (Haloperidol Lact Inj 5 Mg/Ml Vial) 10 mg IM X1 ONE Stop: 09/14/25 19:04 Last Admin: 09/14/25 21:11 Dose: Not Given Documented By: KARINA Non-Admin Reason: Cancelled by Provider Quetiapine Fumarate (Quetiapine Fumarate 100 Mg Tablet) 300 mg PO X1 ONE Stop: 09/14/25 19:24 Last Admin: 09/14/25 21:13 Dose: 300 mg Documented By: KARINA See above if any. Consultations Consultation(s) initiated? (list below): No Diagnosis Psych Differential Diagnosis: acute psychosis, chronic schizophrenia, suicidal ideation, bipolar disorder, depression, drug-induced psychotic disorder and acute anxiety Most likely diagnosis given after review of the tests above:: Acute psychosis/history of schizoaffective disorder Admission Indicated Admission indicated?: not indicated Explain why admission is indicated or not indicated:: Pending psychiatric evaluation in the morning. Admission Request Was there a request for admission?: No Disposition Plan Disposition Plan: other (specify) (Patient signed out to Dr. Yanez at 6 AM.) Discharge Plan Plan Patient Disposition: [facility] Prescriptions/Referrals Referrals: No Primary/Family,Physician [Primary Care Provider] - In 1 week Problem List Clinical Impression: Schizoaffective disorder, Acute psychosis Patient/Caregiver Discharge Instructions Print Language: Japanese Stand Alone Forms: [facility]ourtney Award Info., Patient Portal Info Letter
[2025-09-14 19:48] LABS: Basophils # (Auto) 0.1 Thou/mm3 (0.0-0.2); Basophils % (Auto) 1 % (0-2.5); Eosinophils # (Auto) 0.2 Thou/mm3 (0.0-0.5); Eosinophils % (Auto) 3 % (0-10); Hematocrit 44.4 % (41.0-53.0); Hemoglobin 14.6 g/dL (13.5-16.0); Immature Granulocytes Auto 0.02 Thou/mm3 (0.00-0.00); Lymphocytes # (Auto) 2.1 Thou/mm3 (1.0-4.8); Lymphocytes % (Auto) 30 % (10-50); Mean Corpuscular HGB Conc 32.9 g/dl (31.0-37.0); Mean Corpuscular Hemoglobin 26.4 pg (25.0-35.0); Mean Corpuscular Volume 80 fL (80-100); Monocytes # (Auto) 0.6 Thou/mm3 (0.0-0.8); Monocytes % (Auto) 9 % (0-12); Neutrophils # (Auto) 3.9 Thou/mm3 (1.8-7.7); Neutrophils % (Auto) 57 % (37-80); Nucleated Red Blood Cell # 0.00 Thou/mm3 (0.00-0.00); Nucleated Red Blood Cell % 0 /100 WBC (0); Platelet Count 212 Thou/mm3 (140-440); RDW Standard Deviation 43.1 fL (35.1-43.9); Red Blood Count 5.52 Miln/mm3 (4.50-5.90); White Blood Count 6.9 Thou/mm3 (3.8-10.6)
[2025-09-14 20:05] LABS: Acetaminophen < 2.0 mcg/mL (10.0-20.0); Alcohol, Blood Medical < 3.0 mg/dL (0-10.0); Salicylate < 3.0 mg/dL
[2025-09-14] MEDS: DIAZEPAM INJ 5 MG/ML VIAL 2 ML IM (21:14)
--- NOTE | 2025-09-14 21:27 | PC.NURSE ---
Medications administered late due to receiving patient at 0 with meds not being given in over 2 hours.
[2025-09-14 21:46] LABS: Alcohol, Urine Negative (Negative); Amphetamine/Methamp Scrn,U Positive (Negative); Barbiturate Screen,Urine Negative (Negative); Benzodiazepines Screen,Urine Negative (Negative); Benzoylecgonine Screen, Ur Negative (Negative); Fentanyl Screen,Urine Negative (Negative); Opiate Screen,Urine Negative (Negative); THC Screen,Urine Positive (Negative)
[2025-09-15] VITALS: BP 150/70; PULSE 90; RESP 16; TEMP 36.6; O2SAT 95
[2025-09-15 04:00] VITALS: BP 167/76; PULSE 81; RESP 17; TEMP 36.6; O2SAT 98
[2025-09-15 07:18] VITALS: BP 134/87; PULSE 89; RESP 19; TEMP 36.6; O2SAT 95
--- NOTE | 2025-09-15 07:54 | PD.EDADDENDU ---
Emergency Room Addendum Addendum Narrative: 0600: Care assumed from Dr. Flores, the previous shift emergency physician. Past medical, surgical, social and family history reviewed. Vitals and home medications reviewed. I will assume the care of the patient at this time, pending mental health evaluation and final disposition. Please refer to the emergency department record for history and examination from initial visit.?The following addendum documentation note is intended to reflect any pending information, findings, or radiology results not included in the patient?s initial chart. Patient has been evaluated by our social services counselor and placed on a [address] into an LPS facility. Patient has been accepted by Dr. Lock at [facility]. EMS p/u 15:00h. 1500: EMS here to transfer the patient.
--- NOTE | 2025-09-15 08:44 | PC.CC ---
QUITA Lilly and PATRICIO Luna met with patient at bedside. Patient is a 30 year old male who is currently living at the [facility] (a half-way in [place]). Patient has been unhoused for several years. Patient has not family in the area. Patient states that most of his family is in [place] but recently came back to [place] because he likes the weather. Patient came into the Emergency Room due to having thoughts of harming self. Patient was disheveled, poor eye contact and agitated. Patient reports that he has a history of schizoaffective disorder, bipolar type as well as depression and anxiety. Patient reports history of auditory hallucination command type. Patient has no visual hallucination or homicidal ideation. When asked about the voices, patient states that the voices tell him to kill himself. Patient states that he recently obtained a speaker and started hitting himself over the head to stop the voices. Patient has thoughts of hanging self if discharged. Patient was recently release from [facility]. Patient was placed there on a 5150 hold for danger to self. Patient was released with medication seroquel 500 mg and olanzapine 5 mg and appointment for which patient did not attend. Patient also reports that he has not taken his medication for the past 5 days. Patient states that the medication is at the [facility] with the rest of his belonging. Patient reports that he went to the [facility] because he wanted to get into a program that will help him get better. 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 Patient is not able to safety plan at this time. Patient meets criteria for danger to self. Team discussed it with Direct powerhouse mechanic supervisor and QUITA wrote the 5150 hold. Team informed the samantaibbarby Johns that patient was going to be placed on a hold scribe will inform the physician. PATRICIO Luna also informed charge nurse.
--- NOTE | 2025-09-15 10:18 | PC.SS ---
Addendum entered by Cheryl Shelby 09/15/25 10:47: SS set up transportation with Gill from [facility] for 1500. SS notified Charge nurse, Lu as well as patients nurse, Ruth Ann. Patient was also made aware. Original Note: SS follow up note; SS sent out clinicals to all [facility] facilities. SS was then contacted by Ranjit . Accepting Dr Lock. [address]. Aden would like patient to arrive at 4PM. SS transferred call to patient's nurse for report.
--- NOTE | 2025-09-15 10:26 | PC.NURSE ---
JOHANNA DOUGLASS CALLED IN REGARDS TO NURSE TO NURSE REPORT
[2025-09-15 11:00] VITALS: BP 122/73; PULSE 83; RESP 20; TEMP 36.7; O2SAT 98
== END 2025-09-15 15:20 ==
PROVIDERS: Emergency Medicine; Emergency Provider Emergency Medicine
DX: F25.9 Schizoaffective disorder, unspecified (principal); F23 Brief psychotic disorder; R45.851 Suicidal ideations; I10 Essential (primary) hypertension; Z75.1 Person awaiting admission to adequate facility elsewhere; F12.90 Cannabis use, unspecified, uncomplicated
CPT/HCPCS: 36415; 80307; 80320; 80329; 85025; 96127; 96372; 99284; J3360; A9270; G0480